=== PATIENT | female | born 1995 | race Caucasian/White ===

== ENCOUNTER → 2021-11-07 | Outpatient (CLI) | payer BC ==
--- NOTE | 2021-11-07 14:31 | RAD ---
XR CHEST 2V INDICATION: COUGH . COMPARISON STUDY: None. FINDINGS: Lungs: Normal lung volume. No pulmonary mass or consolidation. The tracheobronchial tree and hilar st ructures are normal. Pleura: No pleural effusion or pneumothorax. Heart and Mediastinum: The cardiomediastinal silhouette is normal. The great vessels of the thorax ar e normal. Bones and Soft Tissues: The bones and soft tissues are within normal limits. IMPRESSION: No acute cardiopulmonary process. Electronically signed by: Andrez Barber MD (11/07/2021 2:29 PM) [id number]
== END ==
LOC: RAD 13:51
PROVIDERS: ATTEND Nurse Practitioner
DX: J22 Unspecified acute lower respiratory infection (principal)
CPT/HCPCS: 71046